=== PATIENT | male | born 1950 | race Caucasian/White ===

== ENCOUNTER → 2017-12-13 | Outpatient (CLI) | payer OTHER ==
[~2017-12-13] MED LIST: ADULT LOW DOSE81 MG; BENTYL 10 MG CA10 MG PO; BIOFLEX TABLET1 EACH; CARDIO OMEGA B1 EACH; CINNAMON BARK1 GM PO; CLARITIN-D 24 H1 TA1 PO; CLARITIN10 MG; DIPHENHYDRAMINE25 M4 PO; FLONASE 0.05%50 MCG NASAL; IBUPROFEN 800800 M1 PO; JUICE PLUS; LISINOPRIL20 MG; MECLIZINE HCL25 M1 PO; MULTIVITAMINS PO; NORVASC 5 MG TAB5 MG; PRAVASTATIN SOD40 MG PO; PROTONIX40 M2 PO; ROBAXIN500 MG PO
== END ==
LOC: RAD 10:48
DX: J90 Pleural effusion, not elsewhere classified (principal); R91.8 Other nonspecific abnormal finding of lung field